=== PATIENT | female | born 1955 | race Caucasian/White ===

== ENCOUNTER 2018-09-03 08:26 | Day surgery (SDC) | payer MEDICARE, MEDICAID ==
[~2018-09-03] VITALS: Ht 154.9 cm; Wt 45.0 kg
[2018-09-03] VITALS (7 sets, daily range): BP systolic 99–113; BP diastolic 56–71
[~2018-09-03 08:26] MED LIST: CARB1TAB23 PO; DIVA500T9 PO; FOLI1TAB16 PO; OXYB5TAB11 PO
[2018-09-03] MEDS ORDERED: fentaNYL/PF 50MCG/1 ML 2ML syringe ONE (08:32)
[2018-09-03] MEDS ORDERED: MIDAZolam 5mg/5ml vial ONE (08:32)
[2018-09-03] MEDS ORDERED: LIDOcaine Viscous 15ml cup ONE (08:33)
[2018-09-03] MEDS ORDERED: MAG355OR18 PO (09:04)
[2018-09-03] MEDS ORDERED: CRAN450C PO (10:13)
[2018-09-03] MEDS ORDERED: CARB1TAB45 PO (10:13)
[2018-09-03] MEDS ORDERED: DOCU-148 (10:14)
[2018-09-03] MEDS ORDERED: MELA3TAB PO (10:15)
[2018-09-03] MEDS ORDERED: LEVE250T4 PO (10:15)
[2018-09-03] MEDS ORDERED: MELO7.5T12 PO (10:16)
[2018-09-03] MEDS ORDERED: MIDO5TAB PO (10:17)
[2018-09-03] MEDS ORDERED: MIR1T PO (10:18)
[2018-09-03] MEDS ORDERED: HYDR-4383 PO (10:19)
[2018-09-03] MEDS ORDERED: VALP250C3 PO (10:20)
== END 2018-09-03 11:15 | disposition home or self-care (01) ==
LOC: GI LAB 08:26
PROVIDERS: ATTEND Internal Medicine Gastroenterology
DX: Z43.1 Encounter for attention to gastrostomy (principal); G20 Parkinson's disease; K44.9 Diaphragmatic hernia without obstruction or gangrene
CPT/HCPCS: 43246; 99153; G0500; J2250; J3010; J7030; A4620

== ENCOUNTER 2018-12-03 10:33 | Day surgery (SDC) | payer MEDICARE, MEDICAID ==
[~2018-12-03] VITALS: Ht 157.5 cm; Wt 57.3 kg
[~2018-12-03 10:33] MED LIST changes: -CARB1TAB23 PO; +CARB1TAB45 PO; +CRAN450C PO; -DIVA500T9 PO; +DOCU-148; +HYDR-4383 PO; +LEVE250T4 PO; +MAG355OR18 PO; +MELA3TAB PO; +MELO7.5T12 PO; +MIDO5TAB PO; +MIR1T PO; +VALP250C3 PO
[2018-12-03 10:55] VITALS: BP 141/105
[2018-12-03] MEDS ORDERED: MIDAZolam 5mg/5ml vial ONE (11:50)
[2018-12-03] MEDS ORDERED: fentaNYL/PF 50MCG/1 ML 2ML syringe ONE (11:50)
[2018-12-03] MEDS ORDERED: LIDOcaine Viscous 15ml cup ONE (11:50)
[2018-12-03 12:07] VITALS: BP 94/59
[2018-12-03 12:17] VITALS: BP 104/55
[2018-12-03 12:27] VITALS: BP 98/61
[2018-12-03 12:37] VITALS: BP 98/61
== END 2018-12-03 13:02 ==
LOC: GI LAB 10:33
PROVIDERS: ATTEND Internal Medicine Gastroenterology
DX: Z43.1 Encounter for attention to gastrostomy (principal); K44.9 Diaphragmatic hernia without obstruction or gangrene
CPT/HCPCS: 43247; C1773; J2250; J3010; J7030; 99152; A4620